=== PATIENT | male | born 1975 | race Caucasian/White ===

== ENCOUNTER 2016-11-02 15:34 | Emergency (ER) | payer MEDICARE ==
[2016-11-02 16:35] LABS: BASOPHILS 0.6 % (0-2); EOSINOPHILS 1.8 % (0-7); HEMATOCRIT 36.9 % (42.0-54.0); HEMOGLOBIN 12.1 g/dL (13.5-17.5); IMMATURE GRANULOCYTES 0.3 % (0-5); LYMPHOCYTES 41.6 % (15-50); MCH 28.8 pg (26.0-34.0); MCHC 32.8 g/dL (31.0-37.0); MCV 87.9 fL (80.0-100.0); MONOCYTES 17.2 % (2-11); NEUTROPHILS 38.5 % (40-80); PLATELET COUNT 253 10x3/uL (130-400); RDW 16.6 % (11.5-14.5); WBC 12.5 10x3/uL (4.8-10.8)
[2016-11-02 16:49] LABS: LITHIUM 0.14 mmol/L (0.60-1.20)
[2016-11-02 16:52] LABS: ANION GAP 13.5 mmol/L (8-16); BILIRUBIN - TOTAL 0.48 mg/dL (0.2-1.3); CALCIUM 8.8 mg/dL (8.5-10.1); CARBON DIOXIDE 24.7 mmol/L (21.0-32.0); CREATININE - SERUM 1.3 mg/dL (0.6-1.3); POTASSIUM - SERUM 3.2 mmol/L (3.5-5.1)
[2016-11-02 16:57] LABS: VALPROIC ACID (DEPAKOTE) 1.6 ug/mL (50.0-100.0)
[2016-11-02 17:26] LABS: APPEARANCE HAZY (CLEAR); BILIRUBIN NEGATIVE (NEGATIVE); COLOR DK YELLOW (YELLOW); GLUCOSE 500 mg/dL (NEGATIVE); KETONE NEGATIVE (NEGATIVE); LEUKOCYTE ESTERASE TRACE (NEGATIVE); NITRITE NEGATIVE (NEGATIVE); PROTEIN 2+ mg/dL (NEGATIVE); UROBILINOGEN NORMAL (NORMAL)
[2016-11-02 17:40] LABS: UDS - AMPHET POSITIVE QUAL (NEGATIVE); UDS - BARB NEGATIVE QUAL (NEGATIVE); UDS - BENZO NEGATIVE QUAL (NEGATIVE); UDS - COCAINE NEGATIVE QUAL (NEGATIVE); UDS - METH NEGATIVE QUAL (NEGATIVE); UDS - OPIATE NEGATIVE QUAL (NEGATIVE); UDS - PCP NEGATIVE QUAL (NEGATIVE); UDS - THC NEGATIVE QUAL (NEGATIVE)
[2016-11-02 17:44] LABS: BACTERIA FEW /hpf (NONE SEEN); EPITHELIAL CELLS 0-5 /hpf (0-5); GRANULAR CAST OCC /lpf (NONE SEEN); HYALINE CAST 0-5 /lpf (NONE SEEN); RED CELLS - URINE OCC /hpf (0-5)
== END 2016-11-02 22:48 | disposition short-term general hospital (02) ==
LOC: D.ER 15:34
PROVIDERS: Emergency Medicine; Physician Assistant Medical
DX: F41.9 Anxiety disorder, unspecified (principal); R45.851 Suicidal ideations; R45.1 Restlessness and agitation; F22 Delusional disorders; F32.9 Major depressive disorder, single episode, unspecified